=== PATIENT | female | born 1945 | race Caucasian/White ===

== ENCOUNTER 2020-01-23 14:17 | Inpatient (IN) | payer MEDICARE, BC ==
[~2020-01-23] VITALS: Ht 162.6 cm; Wt 88.9 kg
[2020-01-23] MEDS ORDERED: METHOCARBAMOL 750 MG TABLET PO PRN (17:45)
[2020-01-23] MEDS ORDERED: HYDROCODONE/ACETAMINOPHEN 5-325 MG TABLET PO PRN (17:45)
[2020-01-23] MEDS ORDERED: HYDROCODONE/ACETAMINOPHEN 10-325 MG TABLET PO PRN (17:45)
[2020-01-23 19:19] VITALS: BP 138/45
[2020-01-23] MEDS: FLUNISOLIDE NASAL SCH (20:32)
[2020-01-23] MEDS: METOPROLOL TARTRATE 50 MG TABLET PO SCH (20:32)
[2020-01-23 22:51] VITALS: BP 138/45
[2020-01-24 01:45] VITALS: BP 124/46
[2020-01-24] MEDS ORDERED: ALENDRONATE SODIUM 70 MG TABLET PO SCH (06:30)
[2020-01-24] MEDS ORDERED: FAMOTIDINE 20 MG TABLET PO SCH (07:00)
[2020-01-24 08:00] VITALS: BP 127/68
[2020-01-24] MEDS: FLUNISOLIDE NASAL SCH ×2 (08:18→20:00)
[2020-01-24] MEDS: ASPIRIN 81 MG EC TABLET PO SCH (08:19)
[2020-01-24] MEDS: LISINOPRIL 10 MG TABLET PO SCH (08:19)
[2020-01-24] MEDS: AMIODARONE HCL 200 MG TABLET PO SCH (08:19)
[2020-01-24] MEDS: METOPROLOL TARTRATE 50 MG TABLET PO SCH ×2 (08:20→20:00)
[2020-01-24] MEDS: DOCUSATE SODIUM 100 MG CAPSULE PO SCH ×2 (08:25→20:00)
[2020-01-24] MEDS: POLYETHYLENE GLYCOL 3350 17 GM PACKET PO SCH (08:25)
[2020-01-24 15:41] LABS: APPEARANCE,URINE CLOUDY (CLEAR); BILIRUBIN,URINE NEGATIVE (NEGATIVE); GLUCOSE, URINE (UA) NEGATIVE (NEGATIVE); KETONES,URINE NEGATIVE (NEGATIVE); LEUKOCYTE ESTERASE ,URINE LARGE (NEGATIVE); NITRATE,URINE NEGATIVE (NEGATIVE); OCCULT BLOOD,URINE LARGE (NEGATIVE); PROTEIN,URINE POS 1+ (NEGATIVE); UROBILINOGEN,URINE 0.2 mg/dL (<=1.0)
[2020-01-24 15:49] LABS: BACTERIA,URINE Moderate /HPF (None Seen); SQUAMOUS EPITHELIAL CELL,UR Many /LPF (None Seen)
[2020-01-24 15:50] LABS: WBC,URINE 51-100 /HPF (0-5)
[2020-01-24 16:14] VITALS: BP 122/71
[2020-01-24] MEDS: FAMOTIDINE 20 MG TABLET PO SCH (16:33)
[2020-01-24 19:57] VITALS: BP 129/64
[2020-01-24] MEDS ORDERED: SENNA 187 MG TABLET PO SCH (21:00)
[2020-01-25 03:30] VITALS: BP 122/65
[2020-01-25] MEDS: FAMOTIDINE 20 MG TABLET PO SCH ×2 (06:40→16:52)
[2020-01-25 07:00] VITALS: BP 130/72
[2020-01-25 07:28] LABS: BASOPHILS % (AUTO) 0.7 % (0.0-2.0); EOSINOPHILS % (AUTO) 3.7 % (1.0-6.0); HEMATOCRIT 32.1 % (36-46); HEMOGLOBIN 10.9 g/dL (12.0-16.0); LYMPHOCYTES # (AUTO) 1.4 K/uL (1.0-4.8); LYMPHOCYTES % (AUTO) 20.5 % (22.0-44.0); MEAN CORPUSCULAR HEMOGLOBIN 31.6 pg (26.0-34.0); MEAN CORPUSCULAR HGB CONC 33.8 G/dL (31.0-37.0); MEAN CORPUSCULAR VOLUME 94 fL (80-100); MONOCYTES # (AUTO) 0.7 K/uL (0.1-1.0); MONOCYTES % (AUTO) 9.9 % (2.0-9.0); NEUTROPHILS # (AUTO) 4.5 K/uL (1.8-7.7); NEUTROPHILS % (AUTO) 65.2 % (40.0-70.0); PLATELET COUNT (AUTO) 181 K/uL (150-450); RED BLOOD CELL COUNT(AUTO) 3.43 MIL/uL (4.00-5.20); RED CELL DISTRIBUTION WIDTH 13.4 % (11.5-14.5)
[2020-01-25 07:42] LABS: ALANINE AMINOTRANSFERASE 15 U/L (12-78); ALBUMIN 2.7 g/dL (3.4-5.0); ALKALINE PHOSPHATASE 52 U/L (46-116); ANION GAP 7 mmol/L (8-16); ASPARTATE AMINOTRANSFERASE 17 U/L (15-37); BILIRUBIN,TOTAL 0.4 mg/dL (0.1-1.0); CALCIUM, TOTAL 8.1 mg/dL (8.8-10.5); CARBON DIOXIDE 26 mmol/L (22-29); CHLORIDE 106 mmol/L (98-107); CREATININE 0.64 mg/dL (0.60-1.30); GLOMERULAR FILTR. RATE CALC > 60 mL/min (>60); GLUCOSE,RANDOM 97 mg/dL (70-110); POTASSIUM 4.1 mmol/L (3.5-5.1); SODIUM SERUM 139 mmol/L (136-145); TOTAL PROTEIN, SERUM 6.2 g/dL (6.4-8.2); UREA NITROGEN, BLOOD 14 mg/dL (7-18)
[2020-01-25] MEDS: ASPIRIN 81 MG EC TABLET PO SCH (07:48)
[2020-01-25] MEDS: AMIODARONE HCL 200 MG TABLET PO SCH (07:48)
[2020-01-25] MEDS: FLUNISOLIDE NASAL SCH ×2 (07:48→21:15)
[2020-01-25] MEDS: LISINOPRIL 10 MG TABLET PO SCH (07:48)
[2020-01-25] MEDS: METOPROLOL TARTRATE 50 MG TABLET PO SCH ×2 (07:48→21:15)
[2020-01-25] MEDS: POLYETHYLENE GLYCOL 3350 17 GM PACKET PO SCH (07:48)
[2020-01-25] MEDS: DOCUSATE SODIUM 100 MG CAPSULE PO SCH (07:48)
[2020-01-25 15:48] VITALS: BP 111/46
[2020-01-25] MEDS: CEPHALEXIN MONOHYDRATE 500 MG CAPSULE PO SCH ×2 (17:39→23:56)
[2020-01-25] MEDS ORDERED: POLYETHYLENE GLYCOL 3350 17 GM PACKET PO PRN (20:00)
[2020-01-25 20:07] VITALS: BP 122/58
[2020-01-26 00:06] VITALS: BP 99/40
[2020-01-26] MEDS: CEPHALEXIN MONOHYDRATE 500 MG CAPSULE PO SCH ×4 (06:10→23:18)
[2020-01-26] MEDS: FAMOTIDINE 20 MG TABLET PO SCH ×2 (06:10→17:13)
[2020-01-26 08:10] VITALS: BP 132/58
[2020-01-26] MEDS: METOPROLOL TARTRATE 50 MG TABLET PO SCH ×2 (08:55→20:34)
[2020-01-26] MEDS: ASPIRIN 81 MG EC TABLET PO SCH (08:55)
[2020-01-26] MEDS: AMIODARONE HCL 200 MG TABLET PO SCH (08:55)
[2020-01-26] MEDS: LISINOPRIL 10 MG TABLET PO SCH (08:55)
[2020-01-26] MEDS: FLUNISOLIDE NASAL SCH ×2 (08:55→20:34)
[2020-01-26 15:38] VITALS: BP 114/48
[2020-01-26] MEDS: ACETAMINOPHEN 325 MG TABLET PO PRN (20:33)
[2020-01-26] MEDS: GuaiFENesin [SUGAR-FREE] 200 MG/10 ML SOLUTION UDCUP PO PRN (20:34)
[2020-01-27] MEDS ORDERED: FLUNNS NASAL (01:49)
[2020-01-27] MEDS ORDERED: METO-558 PO (01:49)
[2020-01-27] MEDS ORDERED: LISI-661 PO (01:49)
[2020-01-27] MEDS ORDERED: FAMO20 PO (01:49)
[2020-01-27] MEDS ORDERED: ASPI-728 PO (01:49)
[2020-01-27] MEDS ORDERED: ALEN70TA65 PO (01:49)
[2020-01-27] MEDS ORDERED: MULT1CAP32 PO (01:49)
[2020-01-27 02:00] VITALS: BP 109/48
[2020-01-27] MEDS: CEPHALEXIN MONOHYDRATE 500 MG CAPSULE PO SCH ×4 (06:02→23:31)
[2020-01-27] MEDS: FAMOTIDINE 20 MG TABLET PO SCH ×2 (06:02→16:44)
[2020-01-27 07:59] VITALS: BP 126/62
[2020-01-27] MEDS: FLUNISOLIDE NASAL SCH ×2 (08:30→20:08)
[2020-01-27] MEDS: ASPIRIN 81 MG EC TABLET PO SCH (08:30)
[2020-01-27] MEDS: LISINOPRIL 10 MG TABLET PO SCH (08:30)
[2020-01-27] MEDS: AMIODARONE HCL 200 MG TABLET PO SCH (08:30)
[2020-01-27] MEDS: METOPROLOL TARTRATE 50 MG TABLET PO SCH ×2 (08:30→20:08)
[2020-01-27] MEDS ORDERED: HydrOXYzine HCL 10 MG TABLET PO PRN (13:15)
[2020-01-27 15:47] VITALS: BP 114/49
[2020-01-27] MEDS: HYDROCORTISONE 1% 30 GM OINTMENT TP SCH ×2 (16:28→20:07)
[2020-01-27 20:03] VITALS: BP 123/57
[2020-01-27] MEDS: GuaiFENesin [SUGAR-FREE] 200 MG/10 ML SOLUTION UDCUP PO PRN (20:07)
[2020-01-27] MEDS: ACETAMINOPHEN 325 MG TABLET PO PRN (20:08)
[2020-01-28 01:01] VITALS: BP 117/51
[2020-01-28] MEDS: ACETAMINOPHEN 325 MG TABLET PO PRN ×2 (02:34→20:09)
[2020-01-28] MEDS: FAMOTIDINE 20 MG TABLET PO SCH ×2 (06:15→17:15)
[2020-01-28] MEDS: CEPHALEXIN MONOHYDRATE 500 MG CAPSULE PO SCH ×4 (06:15→23:59)
[2020-01-28] MEDS: FLUNISOLIDE NASAL SCH ×2 (08:30→20:07)
[2020-01-28] MEDS: LISINOPRIL 10 MG TABLET PO SCH (08:31)
[2020-01-28] MEDS: METOPROLOL TARTRATE 50 MG TABLET PO SCH ×2 (08:31→20:08)
[2020-01-28] MEDS: ASPIRIN 81 MG EC TABLET PO SCH (08:31)
[2020-01-28] MEDS: AMIODARONE HCL 200 MG TABLET PO SCH (08:31)
[2020-01-28] MEDS: HYDROCORTISONE 1% 30 GM OINTMENT TP SCH ×3 (08:32→20:08)
[2020-01-28 09:26] VITALS: BP 143/53
[2020-01-28 15:35] VITALS: BP 108/54
[2020-01-28] MEDS: GABAPENTIN 100 MG CAPSULE PO SCH ×2 (17:14→20:08)
[2020-01-28] MEDS ORDERED: AMIO200T68 PO (19:50)
[2020-01-28] MEDS ORDERED: GABA-1216 PO (19:50)
[2020-01-28 20:05] VITALS: BP 113/56
[2020-01-28] MEDS: GuaiFENesin [SUGAR-FREE] 200 MG/10 ML SOLUTION UDCUP PO PRN (20:09)
[2020-01-29 00:08] VITALS: BP 106/65
[2020-01-29] MEDS: FAMOTIDINE 20 MG TABLET PO SCH ×2 (06:27→16:10)
[2020-01-29] MEDS: CEPHALEXIN MONOHYDRATE 500 MG CAPSULE PO SCH ×4 (06:27→23:17)
[2020-01-29] MEDS: FLUNISOLIDE NASAL SCH ×2 (07:48→20:55)
[2020-01-29] MEDS: LISINOPRIL 10 MG TABLET PO SCH (07:48)
[2020-01-29] MEDS: AMIODARONE HCL 200 MG TABLET PO SCH (07:48)
[2020-01-29] MEDS: ASPIRIN 81 MG EC TABLET PO SCH (07:48)
[2020-01-29] MEDS: HYDROCORTISONE 1% 30 GM OINTMENT TP SCH ×3 (07:51→20:55)
[2020-01-29 08:57] VITALS: BP 116/58
[2020-01-29] MEDS: GABAPENTIN 100 MG CAPSULE PO SCH ×2 (09:00→16:00)
[2020-01-29] MEDS: METOPROLOL TARTRATE 50 MG TABLET PO SCH ×2 (09:27→20:55)
[2020-01-29 14:16] LABS: APPEARANCE,URINE CLOUDY (CLEAR); BILIRUBIN,URINE NEGATIVE (NEGATIVE); GLUCOSE, URINE (UA) NEGATIVE (NEGATIVE); KETONES,URINE NEGATIVE (NEGATIVE); LEUKOCYTE ESTERASE ,URINE SMALL (NEGATIVE); NITRATE,URINE NEGATIVE (NEGATIVE); OCCULT BLOOD,URINE NEGATIVE (NEGATIVE); PROTEIN,URINE NEGATIVE (NEGATIVE); UROBILINOGEN,URINE 0.2 mg/dL (<=1.0)
[2020-01-29 14:19] LABS: RBC,URINE None Seen /HPF (0-2)
[2020-01-29 14:20] LABS: BACTERIA,URINE Moderate /HPF (None Seen); SQUAMOUS EPITHELIAL CELL,UR Moderate /LPF (None Seen)
[2020-01-29 16:05] VITALS: BP 112/50
[2020-01-29 20:56] VITALS: BP 143/59
[2020-01-29] MEDS: ACETAMINOPHEN 325 MG TABLET PO PRN (20:56)
[2020-01-29] MEDS: GuaiFENesin [SUGAR-FREE] 200 MG/10 ML SOLUTION UDCUP PO PRN (21:09)
[2020-01-30 00:13] VITALS: BP 134/52
[2020-01-30] MEDS ORDERED: CEPH-582 PO (00:58)
[2020-01-30] MEDS: CEPHALEXIN MONOHYDRATE 500 MG CAPSULE PO SCH (06:27)
[2020-01-30] MEDS: FAMOTIDINE 20 MG TABLET PO SCH (06:27)
[2020-01-30] MEDS: LISINOPRIL 10 MG TABLET PO SCH (08:49)
[2020-01-30] MEDS: FLUNISOLIDE NASAL SCH (08:49)
[2020-01-30] MEDS: AMIODARONE HCL 200 MG TABLET PO SCH (08:49)
[2020-01-30] MEDS: ASPIRIN 81 MG EC TABLET PO SCH (08:49)
[2020-01-30] MEDS: METOPROLOL TARTRATE 50 MG TABLET PO SCH (08:50)
[2020-01-30] MEDS: HYDROCORTISONE 1% 30 GM OINTMENT TP SCH (08:51)
[2020-01-30 09:07] VITALS: BP 136/66
== END 2020-01-30 10:20 | disposition home health service (06) | DRG 552 ==
LOC: 2WR 14:33
PROVIDERS: ADMIT Physical Medicine & Rehabilitation; ATTEND Physical Medicine & Rehabilitation
DX: M48.061 Spinal stenosis, lumbar region without neurogenic claudication (principal); N39.0 Urinary tract infection, site not specified; M54.16 Radiculopathy, lumbar region; G89.29 Other chronic pain; M62.838 Other muscle spasm; R26.9 Unspecified abnormalities of gait and mobility; B96.5 Pseudomonas (aeruginosa) (mallei) (pseudomallei) as the cause of diseases classified elsewhere; G25.0 Essential tremor; I10 Essential (primary) hypertension; I48.0 Paroxysmal atrial fibrillation; K21.9 Gastro-esophageal reflux disease without esophagitis; E66.01 Morbid (severe) obesity due to excess calories; K59.00 Constipation, unspecified; L24.9 Irritant contact dermatitis, unspecified cause; M19.90 Unspecified osteoarthritis, unspecified site; Z68.33 Body mass index [BMI] 33.0-33.9, adult; Z88.5 Allergy status to narcotic agent
CPT/HCPCS: 87081; 87086; 97110; 97112; 97116; 97162; 97166; 97530; 97535; 99366